=== PATIENT | male | born 1970 | race Caucasian/White ===

== ENCOUNTER 2016-12-09 17:12 | Emergency (ER) | payer OTHER ==
[2016-12-09 17:23] VITALS: BP 135/89; PULSE 79; TEMP 98.6; BMI 29.8
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
[2016-12-09 18:59] LABS: BASOPHIL 0.2 % (0-2.0); EOSINOPHIL 2.9 % (0-4.5); MCH 29.7 pg (25.7-33.7); MEAN CELL VOLUME 87.3 fl (80-96); MEAN PLT VOLUME 7.5 fl (7.5-11.1); NEUTROPHILS 59.5 % (42.8-82.8); PLATELET COUNT 199 K/MM3 (134-434); RDW 11.9 % (11.9-15.9); WHITE BLOOD COUNT 8.1 K/mm3 (4.0-10.8)
[2016-12-09 19:18] LABS: ALBUMIN 4.4 g/dl (3.5-5.0); ALK PHOS 89 U/L (32-92); ANION GAP 7 (8-16); BILIRUBIN,TOTAL 0.6 mg/dl (0.2-1.0); CALCIUM 9.1 mg/dl (8.4-10.2); CO2 27 mmol/L (22-28); CPK 80 IU/L (39-308); GLUCOSE,RANDOM 102 mg/dl (74-106); SGOT/AST 57 U/L (10-42); SGPT/ALT 110 U/L (10-40); TOT PROT 6.9 g/dl (6.4-8.3)
[2016-12-09 19:33] LABS: TROPONIN I (DFP) < 0.03 ng/ml (0.03-0.50)
--- NOTE | 2016-12-09 19:50 | PDOC ---
*Physical Exam - Vital Signs Last Vital Signs Temp Pulse Resp BP Pulse Ox 98.6 F 79 15 135/89 97 12/09/16 17:12 12/09/16 17:12 12/09/16 17:12 12/09/16 17:12 12/09/16 17:12 ED Treatment Course - LABORATORY CBC & Chemistry Diagram: 12/09/16 18:50 12/09/16 18:50 - ADDITIONAL ORDERS Additional order review: Laboratory Results 12/09/16 18:50 Sodium 137 Potassium 4.1 Chloride 103 Carbon Dioxide 27 Anion Gap 7 L BUN 19 H Creatinine 1.0 Creat Clearance w eGFR > 60 Random Glucose 102 Calcium 9.1 Total Bilirubin 0.6 AST 57 H ALT 110 H Alkaline Phosphatase 89 Creatine Kinase 80 Troponin I < 0.03 L Total Protein 6.9 Albumin 4.4 12/09/16 18:50 RBC 5.07 MCV 87.3 MCHC 34.0 RDW 11.9 MPV 7.5 Neutrophils % 59.5 Lymphocytes % 29.7 Monocytes % 7.7 Eosinophils % 2.9 Basophils % 0.2 - Medications Given in the ED: ED Medications Discontinued Medications Generic Name Dose Route Start Last Admin Trade Name Freq PRN Reason Stop Dose Admin Oxycodone/Acetaminophen 1 combo 12/09/16 17:55 12/09/16 18:31 Percocet 5/325 - PO 12/09/16 17:56 1 combo ONCE ONE Administration Progress Note - Progress Note Progress Note: Care of this patient received from . Laboratory evaluation is essentially normal with no elevation of cardiac enzymes. Patient will be discharged with diagnosis of rib contusion. Patient states that he has been awake over the last few nights because of pain secondary to his chest wall. He asked for "strong" pain medication so that he can sleep overnight. Patient will be given tramadol 50 mg (#10) to be used as a for severe pain at night. Patient should return to the emergency room if he has severe, persistent pain. He should follow-up with his PMD, within 3-4 days *DC/Admit/Observation/Transfer Diagnosis at time of Disposition: Contusion of rib on left side Qualifiers: Encounter type: initial encounter Qualified Code(s): S20.212A - Contusion of left front wall of thorax, initial encounter - Discharge Dispostion Disposition: HOME Condition at time of disposition: Stable - Prescriptions Prescriptions: Tramadol HCl 50 mg PO BID PRN #10 tablet MDD 2 tabs PRN Reason: Severe Pain - Referrals Referrals: Yogi Castano MD [Primary Care Provider] - 3 days - Patient Instructions Printed Discharge Instructions: DI for Rib Contusion Additional Instructions: Acetaminophen/ibuprofen/naproxen as needed for [id number] pain Tramadol as needed for severe pain; this medication may make you sleepy Follow-up with Dr. Castano within the next 3-4 days Return to the emergency room if you have severe, persistent pain - Post Discharge Activity
--- NOTE | 2016-12-10 20:38 | EKG ---
Test Reason : Blood Pressure : / mmHG Vent. Rate : 067 BPM Atrial Rate : 067 BPM P-R Int : 136 ms QRS Dur : 112 ms QT Int : 406 ms P-R-T Axes : 045 050 044 degrees QTc Int : 429 ms POOR DATA QUALITY, INTERPRETATION MAY BE ADVERSELY AFFECTED NORMAL SINUS RHYTHM NORMAL ECG NO PREVIOUS ECGS AVAILABLE REPEAT EKG IF CLINICALLY INDICATED Confirmed by ALVARO PITTMAN MD ([id number]) on 12/10/2016 8:37:51 PM Referred By: AUSTIN JARVIS Confirmed By:ALVARO PITTMAN MD
== END 2016-12-09 20:41 | disposition home or self-care (01) ==
LOC: FER 17:12
DX: S20.212A Contusion of left front wall of thorax, initial encounter (principal); X58.XXXA Exposure to other specified factors, initial encounter; Y93.89 Activity, other specified; Y92.9 Unspecified place or not applicable; E78.00 Pure hypercholesterolemia, unspecified; Z87.891 Personal history of nicotine dependence
CPT/HCPCS: 36415; 71020-TC; 71101-TC; 80053; 84484; 85025; 93005; 99283-25

== ENCOUNTER 2017-11-09 21:18 | Emergency (ER) | payer OTHER ==
[2017-11-09] MEDS ORDERED: diazePAM 5 MG TABLET PO ONE (22:09)
[2017-11-09] MEDS ORDERED: KETOROLAC TROMETHAMINE 30 MG/1 ML VIAL IM ONE (22:09)
[2017-11-09] MEDS ORDERED: morphine CARPU-JECT 2 MG/1 ML DISP.SYRIN IM ONE (22:09)
--- NOTE | 2017-11-09 22:09 | PDOC ---
History of Present Illness - General History Source: Patient Exam Limitations: No Limitations - History of Present Illness Initial Comments: 11/09/17 22:27 The patient is a 47 year old male with a significant PMH of hypercholesterolemia and IBS who presents to the emergency department with lower back pain since earlier today. The patient reports that he bent down earlier today to help his dad fix something on his bag when he felt a sudden onset of lower back pain. The patient reports some associated limited motion with is lower back pain. He describes his back pain as a tightness. He states that he took an aleve at about 11 am this morning following his onset of pain. He denies any prior injury or surgery. He denies any numbness weakness or tingling sensation. The patient reports that he was otherwise feeling good yesterday. The patient denies any other symptoms. He denies any fever, chills, nausea, vomit, diarrhea, constipation or urinary symptoms. He denies any chest pain, shortness of breath, headache and dizziness. The patient denies any other complaints <Efrain Mari - Last Filed: 11/09/17 22:27> <Art Peterson - Last Filed: 11/10/17 00:18> - General Chief Complaint: Back Pain Stated Complaint: LOW BACK PAIN Time Seen by Provider: 11/09/17 21:47 Past History <Efrain Mari - Last Filed: 11/09/17 22:27> - Past Medical History HTN: Yes Hypercholesterolemia: Yes - Suicide/Smoking/Psychosocial Hx Smoking Status: No Smoking History: Former smoker Have you smoked in the past 12 months: No Number of Cigarettes Smoked Daily: 0 If you are a former smoker, when did you quit?: 2009 Hx Alcohol Use: Yes (social) Drug/Substance Use Hx: No Substance Use Type: None <Art Peterson - Last Filed: 11/10/17 00:18> - Past Medical History Allergies/Adverse Reactions: Allergies Allergy/AdvReac Type Severity Reaction Status Date / Time No Known Allergies Allergy Verified 11/09/17 22:52 Home Medications: Ambulatory Orders Simvastatin [Zocor -] 40 mg PO HS 12/09/16 Diazepam [Valium] 5 mg PO BID #6 tablet MDD 1 11/09/17 Naproxen Sodium [Aleve] 220 mg PO ONCE 11/09/17 Review of Systems - Review of Systems Able to Perform ROS?: Yes Comments:: 11/09/17 22:28 A complete review of 10 out of 10 review of systems is taken and is negative apart from what is previously mentioned below and in the HPI. <Efrain Mari - Last Filed: 11/09/17 22:27> *Physical Exam - Physical Exam Comments: 11/10/17 00:16 Vitals: Triage Vital signs reviewed General Appearance: no acute distress, well nourished well developed, Head: Atraumatic, Neck: Supple;No Nucal rigidity Chest Wall: Nontender Cardiac: Regular rate and rhythym, no murmurs, no rubs, no gallops, Lungs: Clear to auscultation bilateral, good air movement bilaterally, Abdomen: Soft, non distended, normal bowel sounds, non tender to palpation Rectal: No saddle anesthesia good rectal tone Extremities: Full range of motion to all extremities, no cyanosis, clubbing, or edema Skin: Warm and dry, no rashes or lesions, no rash, no petechiae Neuro: AOX3; Cranial Nerves 2-12 grossly intact, Strength intact to all extremities, Sensation intact to all extremities slight decreased sensation to webbing of left foot between the great toe and the second toe which patient states has been chronic.,gait normal deep tendon reflexes intact Psych: normal mood, normal affect <Art Peterson - Last Filed: 11/10/17 00:18> Medical Decision Making - Medical Decision Making 11/09/17 23:12 Normal neurologic examination good strength good sensation ambulate comfortably now patient feels much better after pain medication. We'll discharge home on Aleve Valium he will follow-up with his doctor tomorrow to return to the emergency department for any severe worsening symptoms weakness numbness bowel or bladder incontinence or for any concerns. <Art Peterson - Last Filed: 11/10/17 00:18> *DC/Admit/Observation/Transfer - Attestations Scribe Attestion: 11/09/17 22:28 Documentation prepared by Efrain Mari, acting as ophthalmic medical assistant for Art Peterson MD. <Efrain Mari - Last Filed: 11/09/17 22:27> - Discharge Dispostion Decision to Admit order: No <Art Peterson - Last Filed: 11/10/17 00:18> Diagnosis at time of Disposition: Low back pain Qualifiers: Chronicity: acute Back pain laterality: left Sciatica presence: without sciatica Qualified Code(s): M54.5 - Low back pain - Discharge Dispostion Disposition: HOME Condition at time of disposition: Good - Prescriptions Prescriptions: Diazepam [Valium] 5 mg PO BID #6 tablet MDD 1 - Referrals Referrals: Yogi Castano MD [Primary Care Provider] - Kali Olivarez MD [Staff Physician] - - Patient Instructions Printed Discharge Instructions: Low Back Pain Additional Instructions: Ice low back 20 minutes on 20 minutes off. Take 2 tabs Aleve twice a day for the next 5 days. Valium as prescribed as needed for spasm. Rest. Avoid activities which exacerbate pain. Follow-up with your doctor tomorrow to arrange for an outpatient MRI or with orthopedics. Return to the emergency department immediately for any weakness numbness bowel or bladder incontinence or for any concerns. - Post Discharge Activity Forms/Work/School Notes: Back to Work
[2017-11-09] MEDS ORDERED: morphine SULFATE 4 MG/ML VIAL ONE (22:43)
[2017-11-09] MEDS ORDERED: KETOROLAC TROMETHAMINE 30 MG/1 ML VIAL ONE (22:43)
[2017-11-09] MEDS ORDERED: diazePAM 5 MG TABLET ONE (22:44)
[2017-11-09 22:56] VITALS: BP 130/82; PULSE 82; TEMP 98.3; BMI 29.8
== END 2017-11-09 23:21 | disposition home or self-care (01) ==
LOC: FER 21:18
DX: M54.5 Low back pain (principal); Z87.891 Personal history of nicotine dependence; I10 Essential (primary) hypertension; E78.00 Pure hypercholesterolemia, unspecified; K58.9 Irritable bowel syndrome, unspecified
CPT/HCPCS: 99282-25

== ENCOUNTER 2019-04-26 18:15 | Emergency (ER) | payer OTHER ==
[2019-04-26 18:22] VITALS: BP 130/90; PULSE 107; BMI 31.4
[2019-04-26] MEDS ORDERED: ONDANSETRON 4 MG/2 ML VIAL IVPB ONE (18:39)
[2019-04-26] MEDS ORDERED: SODIUM CHLORIDE 1,000 ML IV STA (18:39)
[2019-04-26] MEDS ORDERED: FAMOTIDINE 20 MG/50 ML IVPB 20 MG/50 ML MG IVPB ONE ×2 (18:40→19:25)
--- NOTE | 2019-04-26 18:40 | PDOC ---
History of Present Illness - General Chief Complaint: Nausea Stated Complaint: NAUSEA & DIARRHEA Time Seen by Provider: 04/26/19 18:29 - History of Present Illness Initial Comments: 04/26/19 18:46 Chief complaint: Nausea vomiting and diarrhea HPI: Last evening, the patient became nauseated. He did not allow himself to vomit, but had several episodes of profuse watery diarrhea. This morning at a routine visit to his primary physician he was noted to have a temperature of 102.7. He was referred to the ER for further evaluation Review of systems: Denies chest pain, shortness of breath, hematemesis, melena, bloody stool. He is urinating normally. He admits mild localized epigastric pain. His temperature has come down to 99 degrees without antipyretics. Past medical history: Small umbilical hernia, stable, nonpainful at present. Fracture of his right hand with implanted hardware. Elevated cholesterol on Lipitor Social history: Social alcohol, none recently. No tobacco or nonprescription drugs. Active without disability. Stable home and family Family history: Father with ulcerative colitis in remission, mother with Alzheimer's dementia, no early coronary artery disease or other GI disease, no diabetes. Physical exam: Alert and oriented well-developed well-nourished no acute distress cheerful and cooperative Mild epigastric pain, well localized, no pain at his hernia site Afebrile, vital signs normal. No pallor or icterus PERRLA, fundi benign, ENT clear Neck supple without bruit mass or nodes Lungs clear, full breath sounds bilaterally CV S1-S2 normal without murmur rub or gallop pulses full and symmetric no JVD or edema no bruits Abdomen nondistended, bowel sounds normal. Soft without mass organomegaly. Mild tenderness to deep palpation localized to the epigastrium. No guarding or rebound. No lower quadrant tenderness. Small palpable umbilical hernia that is reducible, nontender. Impression: Viral gastroenteritis, no other source of fever suggested. No acute peritonitis or other significant intra-abdominal disease on exam. Plan: CBC and chemistries, urinalysis, IV fluids Zofran and Pepcid. Further evaluation and treatment depending on results and response to therapy. 04/28/19 07:25 Patient hemodynamically and clinically stable. Awaiting results of laboratory evaluation and treatment. Signed out to Dr. Hairston 7 PM pending results and further evaluation. Past History - Past Medical History Allergies/Adverse Reactions: Allergies Allergy/AdvReac Type Severity Reaction Status Date / Time No Known Allergies Allergy Verified 11/09/17 22:52 Home Medications: Ambulatory Orders Simvastatin [Zocor -] 40 mg PO HS 12/09/16 Diazepam [Valium] 5 mg PO BID #6 tablet MDD 1 11/09/17 Naproxen Sodium [Aleve] 220 mg PO ONCE 11/09/17 COPD: No HTN: Yes Hypercholesterolemia: Yes Other medical history: UMBILICAL HERNIA - Psycho Social/Smoking Cessation Hx Smoking Status: No Smoking History: Never smoked Have you smoked in the past 12 months: No Number of Cigarettes Smoked Daily: 0 If you are a former smoker, when did you quit?: 2009 Hx Alcohol Use: No Drug/Substance Use Hx: No Substance Use Type: None *Physical Exam - Vital Signs Last Vital Signs Temp Pulse Resp BP Pulse Ox 99.8 F H 107 H 16 130/90 99 04/26/19 18:16 04/26/19 18:16 04/26/19 18:16 04/26/19 18:16 04/26/19 18:16 ED Treatment Course - LABORATORY CBC & Chemistry Diagram: 04/26/19 19:30 04/26/19 19:30 Discharge - Discharge Information Problems reviewed: Yes Clinical Impression/Diagnosis: Dehydration, Nausea vomiting and diarrhea Condition: Good Disposition: HOME - Follow up/Referral Referrals: Yogi Castano MD [Primary Care Provider] - - Patient Discharge Instructions Additional Instructions: Return to the emergency department immediately with ANY new, persistent or worsening symptoms. Continue any medications as previously prescribed by your physician. You should follow up with your primary doctor as soon as possible regarding today's emergency department visit. . Please make sure your doctor reviews the results of your emergency evaluation. Thank you for coming to the Emergency Department today for your care. It was a pleasure to see you today. Please note that your evaluation is INCOMPLETE until you follow-up with your doctor. - Post Discharge Activity
[2019-04-26] MEDS ORDERED: ACETAMINOPHEN 1000 MG/100 ML VIAL (NON FORMULARY) IVPB ONE (18:53)
--- NOTE | 2019-04-26 19:12 | PDOC ---
*Physical Exam - Vital Signs Last Vital Signs Temp Pulse Resp BP Pulse Ox 99.8 F H 107 H 16 130/90 99 04/26/19 18:16 04/26/19 18:16 04/26/19 18:16 04/26/19 18:16 04/26/19 18:16 ED Treatment Course - LABORATORY CBC & Chemistry Diagram: 04/26/19 19:30 04/26/19 19:30 ED Progress Note - Progress Note Progress Note: 04/26/19 19:12 Care of this patient was transferred to [place] from Dr. Rodolfo garrido at 1900 hrs. Patient is a 49-year-old male sent in from his primary care doctor for evaluation of fever and nausea and diarrhea. Patient temperature here in the ED is 99. He had a fever of 102 at the PMD this morning did not take anything for it and is now 99. Patient has blood work pending including CBC and comp. Patient is being hydrated and given antiemetics. This most likely is a viral etiology however we will follow-up the work-up and make sure patient is able to tolerate p.o.'s. 04/26/19 19:13 04/26/19 20:30 Reevaluation the patient patient feels much better will order second liter of fluid 1 second liter is done patient discharged we will follow-up with primary care doctor Discharge - Discharge Information Problems reviewed: Yes Clinical Impression/Diagnosis: Dehydration, Nausea vomiting and diarrhea Condition: Good Disposition: HOME - Admission No - Follow up/Referral Referrals: Yogi Castano MD [Primary Care Provider] - - Patient Discharge Instructions Additional Instructions: Return to the emergency department immediately with ANY new, persistent or worsening symptoms. Continue any medications as previously prescribed by your physician. You should follow up with your primary doctor as soon as possible regarding today's emergency department visit. . Please make sure your doctor reviews the results of your emergency evaluation. Thank you for coming to the Emergency Department today for your care. It was a pleasure to see you today. Please note that your evaluation is INCOMPLETE until you follow-up with your doctor. - Post Discharge Activity
[2019-04-26] MEDS ORDERED: ACETAMINOPHEN INJECTION 100 ML IVPB ONE (19:24)
[2019-04-26] MEDS ORDERED: ONDANSETRON 4 MG/2 ML VIAL ONE (19:25)
[2019-04-26 19:55] LABS: BASO % 1.1 % (0-2.0); EOS % 0.1 % (0-4.5); HEMOGLOBIN 17.7 GM/dl (11.7-16.9); LYMPH % 9.9 % (8-40); MCH 30.3 pg (25.7-33.7); MEAN CELL VOLUME 89.1 fl (80-96); MEAN PLT VOLUME 7.9 fl (7.5-11.1); MONO % 5.1 % (3.8-10.2); NEUT % 83.8 % (42.8-82.8); PLATELET COUNT 184 K/MM3 (134-434); RBC 5.84 M/mm3 (4.00-5.60)
[2019-04-26 20:09] LABS: ALBUMIN 4.3 g/dl (3.4-5.0); BILIRUBIN,TOTAL 1.3 mg/dl (0.2-1); CREATININE 1.3 mg/dl (0.55-1.3); TOT PROT 7.3 g/dl (6.4-8.2)
[2019-04-26] MEDS ORDERED: SODIUM CHLORIDE 1,000 ML IV ONE (20:31)
[2019-04-26 21:05] VITALS: TEMP 98.5
== END 2019-04-26 21:09 | disposition home or self-care (01) ==
LOC: FER 18:15
PROC: 3E033NZ Introduction of Analgesics, Hypnotics, Sedatives into Peripheral Vein, Percutaneous Approach (ICD-10-PCS; principal; 2019-04-26)
PROC: 3E033GC Introduction of Other Therapeutic Substance into Peripheral Vein, Percutaneous Approach (ICD-10-PCS; 2019-04-26)
PROC: 3E0337Z Introduction of Electrolytic and Water Balance Substance into Peripheral Vein, Percutaneous Approach (ICD-10-PCS; 2019-04-26)
DX: E86.0 Dehydration (principal); R11.2 Nausea with vomiting, unspecified; R19.7 Diarrhea, unspecified; I10 Essential (primary) hypertension; Z87.891 Personal history of nicotine dependence
CPT/HCPCS: 36415; 80053; 85025; 99284-25; J0131; J7030